=== PATIENT | female | born 1985 | race Two or more races ===

== ENCOUNTER 2020-08-01 07:32 | Outpatient (CLI) | payer OTHER ==
[~2020-08-01 07:32] MED LIST: FOLIC + B12 TAB1 TAB PO; [UNRECOGNIZED DRUG - OTHER]
== END 2020-08-01 07:50 | disposition home or self-care (01) ==
LOC: SONOGRAMA 07:32 → MAMO-SONO 15:15
PROVIDERS: ATTEND Podiatrist Foot Surgery
DX: M71.572 Other bursitis, not elsewhere classified, left ankle and foot (principal)